=== PATIENT | female | born 1990 | race Caucasian/White ===

== ENCOUNTER → 2018-01-02 13:09 | Outpatient (CLI) | payer BC, SELFPAY ==
--- NOTE | 2018-01-02 | XR_ITS ---
XR clavicle RT HISTORY: Post traumatic pain, contusion ORDERING PHYSICIAN: Luz Elena Jay MD PATIENT AGE: 27 years COMPARISON: None FINDINGS: No fracture or dislocation. No lytic or blastic change. There is normal mineralization.. The joint spaces are well-preserved. No significant degenerative/arthritic changes. No erosive changes evident. IMPRESSION: Negative, no acute finding
--- NOTE | 2018-01-02 13:20 | XR_ITS ---
XR facial bones min 3V CLINICAL INDICATION: Posttraumatic pain ITS.REASON: CONTUSION OF JAW, CONTUSION OF CHEST ORDERING PHYSICIAN: Luz Elena Jay MD PATIENT AGE: 27 years FINDINGS: No fracture or dislocation. No bony or joint abnormalities. No sinus air-fluid level. IMPRESSION: Negative facial bones. If pain persists, consider CT for more thorough evaluation
--- NOTE | 2018-01-02 13:20 | XR_ITS ---
XR chest 2V HISTORY: Right-sided chest pain/contusion ORDERING PHYSICIAN: Luz Elena Jay MD PATIENT AGE: 27 years FINDINGS: The cardiomediastinal silhouette and pulmonary vascularity are within normal limits. The lungs are clear without infiltrates, suspicious nodules, or pleural effusions. No acute bony abnormalities. IMPRESSION: Negative chest, no acute finding
== END ==
PROVIDERS: PCP Family Medicine; Visit Provider Family Medicine
DX: S20.319A Abrasion of unspecified front wall of thorax, initial encounter (principal); S20.211A Contusion of right front wall of thorax, initial encounter; S00.83XA Contusion of other part of head, initial encounter
CPT/HCPCS: 70150; 71046; 73000

== ENCOUNTER → 2019-09-16 10:38 | Outpatient (CLI) | payer BC, SELFPAY ==
[2019-09-16 12:21] LABS: Alanine Aminotransferase 19 U/L (12-78); Albumin Level 4.2 gm/dL (3.4-5.0); Albumin/Globulin Ratio 1.6 (1.1-1.8); Alkaline Phosphatase 65 U/L (46-116); Anion Gap 11.4 mEq/L (5-15); Aspartate Amino Transferase 12 U/L (15-37); Bilirubin,Total 0.6 mg/dL (0.2-1.0); Blood Urea Nitrogen 13 mg/dL (7-18); Carbon Dioxide 29 mmol/L (21.0-32.0); Chloride 104 mmol/L (98-107); Chol/HDL Ratio 3.1 (1-3.5); Cholesterol 232 mg/dL (140-200); Creatinine,Serum 0.77 mg/dL (0.55-1.02); Estimated Glomerular Filt Rate 88 ml/min (>60); GFR (African American) 107 ML/MIN (>60); Globulin 2.7 gm/dl (1.3-3.2); Glucose 78 mg/dL (74-106); HDL Cholesterol 74 mg/dL (29-89); LDL Cholesterol 153 mg/dL (0-130); Potassium 4.4 mmoL/L (3.5-5.1); Sodium 140 mmol/L (136-145); Total Protein,Serum 6.9 gm/dL (6.4-8.2); Triglycerides 27 mg/dL (30-200); VLDL Cholesterol 5 mg/dL (0-40)
== END ==
PROVIDERS: Visit Provider Physician Assistant
DX: Z13.29 Encounter for screening for other suspected endocrine disorder (principal); Z13.220 Encounter for screening for lipoid disorders
CPT/HCPCS: 36415; 80053; 80061; 84443

== ENCOUNTER → 2019-09-23 14:59 | Outpatient (CLI) | payer BC, SELFPAY ==
--- NOTE | 2019-09-23 15:08 | US_ITS ---
PROCEDURE: US BREAST RT COMPLETE CLINICAL INDICATION: RT BREAST MASS Palpable abnormality in the right breast, remote injury of the right breast COMPARISON: No exams were available for comparison FINDINGS: In the 1 o'clock region of the right breast there is a well-circumscribed hypoechoic nodule the at 15 x 12 mm corresponding to the palpable abnormality. This is well-circumscribed wider than tall with no internal echoes. There is some minimal posterior acoustical shadowing however. This could be technical in nature. The remaining breast has an unremarkable appearance. IMPRESSION: 15 mm hypoechoic nodule in the 1 o'clock region of the left breast. There is some mild posterior acoustical shadowing. This does appear benign but would recommend follow-up due to the posterior acoustical shadowing. Possibly related to a resolving hematoma or cyst. BI-RADS category 3, probably benign. Recommendations: Six-month ultrasound follow-up. This does appear to represent a benign lesion. This could be aspirated with ultrasound guidance if clinically desired for patient comfort and peace of mind. Dictated by: Tor Sellers MD 10/08/2019 07:50 Electronically signed by Tor Sellers MD in [place] 10/08/2019 07:50
== END ==
PROVIDERS: PCP Family Medicine; Visit Provider Physician Assistant
DX: N63.10 Unspecified lump in the right breast, unspecified quadrant (principal)
CPT/HCPCS: 76641

== ENCOUNTER → 2022-07-22 12:27 | Outpatient (CLI) | payer BC, SELFPAY ==
[2022-07-22 13:02] LABS: Coronavirus 19, PCR Not Detected (NotDetected); Influenza B, PCR Not Detected (NotDetected)
[2022-07-22 13:09] LABS: Basophils # 0.1 K/mm3 (0-0.2); Basophils % 0.8 % (0.1-2.0); Eosinophils # 0.1 K/mm3 (0.0-0.4); Eosinophils % 1.8 % (0.1-12.0); Hematocrit 42.5 % (37.0-47.0); Hemoglobin 13.8 g/dL (12.2-16.2); Lymphocytes # 0.6 K/mm3 (0.7-4.5); Lymphocytes % 8.5 % (10-50); Mean Corpuscular HGB Conc 32.6 g/dL (31.8-35.4); Mean Corpuscular Hemoglobin 28.8 pg (27.0-31.2); Mean Corpuscular Volume 88.4 fl (81-99); Monocytes # 0.4 K/mm3 (0.1-1.0); Monocytes % 5.9 % (1.7-9.3); Neutrophils # 5.8 K/mm3 (1.8-7.8); Platelet Count 267 K/mm3 (142-424); Red Blood Count 4.81 M/mm3 (4.20-5.40); Red Cell Distribution Width 12.5 % (11.5-17.5)
[2022-07-22 13:51] LABS: Strep Scrn Group A (Rapid) Negative (Negative)
[2022-07-22 14:02] LABS: Influenza A, PCR Detected (NotDetected)
== END ==
LOC: UTC.OUT 12:29 → COVID.OUT 08-02 14:46
PROVIDERS: PCP Physician Assistant; Visit Provider Nurse Practitioner Family
DX: Z20.822 Contact with and (suspected) exposure to COVID-19 (principal); J10.1 Influenza due to other identified influenza virus with other respiratory manifestations
CPT/HCPCS: 36415; 85025; 87430; C9803; U0003; U0005

== ENCOUNTER 2024-09-28 10:50 | Outpatient (CLI) | payer BC, SELFPAY ==
--- NOTE | 2024-09-28 10:56 | XR_ITS ---
FINAL REPORT TECHNIQUE: Chest PA & Lateral CLINICAL HISTORY: WHEEZING COMPARISON: None FINDINGS: 2 views of the chest were performed. The heart size is normal. The mediastinum is within normal limits. There is no acute cardiopulmonary process. There are no pleural effusions. There is no pneumothorax. The bony thorax appears intact. IMPRESSION: No acute cardiopulmonary process. Reviewed, Interpreted and Dictated by Harlan Urias MD Transcribed by Yesenia Nolasco Authenticated and [facility]
== END 2024-09-28 23:59 | disposition home or self-care (01) ==
LOC: RAD 10:51
PROVIDERS: PCP Physician Assistant; Visit Provider Physician Assistant
DX: R06.2 Wheezing (principal)
CPT/HCPCS: 71046